=== PATIENT | female | born 1950 | race Caucasian/White ===

== ENCOUNTER → 2016-06-15 | Outpatient (CLI) | payer OTHER | LOC: BMCIMAGING 12:33 | PROVIDERS: ATTEND Physician Assistant | DX: S72.301A Unspecified fracture of shaft of right femur, initial encounter for closed fracture (principal) ==

== ENCOUNTER → 2016-07-13 | Outpatient (CLI) | payer OTHER | LOC: BMCIMAGING 12:59 | PROVIDERS: ATTEND Physician Assistant | DX: S72.001D Fracture of unspecified part of neck of right femur, subsequent encounter for closed fracture with routine healing (principal) ==

== ENCOUNTER → 2016-09-07 | Outpatient (CLI) | payer OTHER, MEDICARE | LOC: BMCIMAGING 13:09 | PROVIDERS: ATTEND Physician Assistant | DX: S72.001D Fracture of unspecified part of neck of right femur, subsequent encounter for closed fracture with routine healing (principal) ==

== ENCOUNTER → 2016-10-26 | Outpatient (CLI) | payer OTHER, MEDICARE | LOC: BMCIMAGING 10:04 | PROVIDERS: ATTEND Physician Assistant | DX: S72.001D Fracture of unspecified part of neck of right femur, subsequent encounter for closed fracture with routine healing (principal) ==

== ENCOUNTER → 2016-11-08 | Outpatient (CLI) | payer OTHER, MEDICARE | LOC: FIMAGING 14:15 | PROVIDERS: ATTEND Physician Assistant | DX: S72.141D Displaced intertrochanteric fracture of right femur, subsequent encounter for closed fracture with routine healing (principal) ==

== ENCOUNTER 2016-12-17 09:56 | Inpatient (IN) | payer OTHER, MEDICARE ==
--- NOTE | 2016-12-17 06:18 | PDHPUP ---
History & Physical Update H&P update statement: This history and physical update is based on an assessment of the patient which was completed after admission or registration (within 24 hours), but prior to the surgery/procedure.
--- NOTE | 2016-12-17 06:19 | PDIAF ---
- Diagnosis Diagnosis: right greater trochanteric fracture Code Status: Full Code - Medication Management Discharge Medications: Medications to Continue on Transfer Herbals/Supplements -Info Only 1 ea PO DAILY 11/29/16 [Last Taken Unknown] Multivitamins [Multivitamin (*)] 1 each PO DAILY 11/29/16 [Last Taken Unknown] Discharge Medications: Refer to the Discharge Home Medication list for PRN reason. - Orders Services needed: Home Care, Physical Therapy Home Care Face to Face: I certify that this patient was under my care and that I had the required rsoo-vh-owse encounter meeting the encounter requirements on the discharge day. My findings support the fact that the patient is homebound as defined in Home Care Face to Face Continued: CMS Chapter 7 Medicare Benefits Manual 30.1.1 , The condition of the patient is such that there exists a normal inability to leave home and consequently, leaving home would require a considerable and taxing effort. Activity/Weight Bearing Restrictions: tdwb right lower extremity. posterior hip precautions. no internal rotation. no hip flexion >90 deg. daily dressing changes. no soaking or immersion. aspirin 325 mg po daily. f/u at two weeks. seek attn for increasing pain, cp , sob, leg pain, drainage, other focal complaints - Follow Up Care Current Providers and Referrals: Lucila Puentes MD [Primary Care Provider] -
[2016-12-17] MEDS ORDERED: ceFAZolin 2 GM/SWFI 2 GM/20 ML SYR IVP ONE (10:24)
[2016-12-17] MEDS ORDERED: LR 1,000 ML IV SCH ×2 (10:24→14:30)
[2016-12-17] MEDS ORDERED: ACETAMINOPHEN 500 MG TAB PO ONE (10:24)
[2016-12-17] MEDS ORDERED: LR 1,000 ML IV ONE (10:28)
[2016-12-17] MEDS ORDERED: LIDOCAINE 1% 2 ML INJ ID PRN (10:28)
[2016-12-17] MEDS ORDERED: BACITRACIN 50,000 UNITS/10 ML SYR IRR ONE ×2 (10:30→12:09)
[2016-12-17] MEDS ORDERED: POLYMYXIN B SULFATE 500,000 UNIT/10 ML SYR IRR ONE ×2 (10:30→12:09)
[2016-12-17] MEDS ORDERED: ROPI/epINEPH/KETOROLAC/morphINE IU ONE (11:30)
[2016-12-17] MEDS ORDERED: BUPIVACAINE 0.5% 30 ML SDV ONE (12:09)
[2016-12-17] MEDS ORDERED: PROPOFOL 200 MG/20 ML VIAL ONE (12:33)
[2016-12-17] MEDS ORDERED: LIDOCAINE 2% 5 ML SDV ONE (12:33)
[2016-12-17] MEDS ORDERED: fentaNYL 100 MCG/2 ML INJ ONE ×3 (12:33→14:40)
[2016-12-17] MEDS ORDERED: MIDAZOLAM 2 MG/2 ML VIAL ONE (12:34)
[2016-12-17] MEDS ORDERED: DEXAMETHASONE 4 MG/ML VIAL ONE (12:56)
[2016-12-17] MEDS ORDERED: SUGAMMADEX SODIUM 200 MG/2 ML VIAL IVP ONE (12:56)
[2016-12-17] MEDS ORDERED: ROCURONIUM 50 MG/5 ML VIAL ONE (12:57)
[2016-12-17] MEDS ORDERED: MIDAZOLAM 2 MG/2 ML VIAL IVP ONE (12:59)
--- NOTE | 2016-12-17 12:59 | PDANEPAE ---
ANE History of Present Illness p/f right greater trochanter ORIF ANE Past Medical History - Cardiovascular History Hx Hypertension: No Hx Arrhythmias: No Hx Chest Pain: No Hx Coronary Artery / Peripheral Vascular Disease: No Hx CHF / Valvular Disease: No Hx Palpitations: No - Pulmonary History Hx COPD: No Hx Asthma/Reactive Airway Disease: No Hx Recent Upper Respiratory Infection: No Hx Oxygen in Use at Home: No Hx Sleep Apnea: No Sleep Apnea Screening Result - Last Documented: Negative - Neurologic History Hx Cerebrovascular Accident: No Hx Seizures: No Hx Dementia: No - Endocrine History Hx Diabetes: No - Renal History Hx Renal Disorders: No Renal History Comment: CHILDHOOD NEPHRITIS - Liver History Hx Hepatic Disorders: No Hepatic History Comment: HEP A & B IN CHILDHOOD - Neurological & Psychiatric Hx Hx Neurological and Psychiatric Disorders: No - Cancer History Hx Cancer: No - Congenital Disorder History Hx Congenital Disorders: No - GI History Hx Gastrointestinal Disorders: No - Other Health History Other Health History: NEG - Chronic Pain History Chronic Pain: Yes (04/2016 FX FEMUR & HANDS) - Surgical History Prior Surgeries: FX FEMUR REPAIR 04/2016. LAMINECTOMY X2. JONAH SHOULDERS. HEMORRHOIDS & FISSURES ANE Review of Systems Review of systems is: negative Review of Systems: - Exercise capacity METS (RN): 4 METS ANE Patient History - Allergies Allergies/Adverse Reactions: No Known Allergies Allergy (Verified 07/28/14 10:48) - Home Medications Home medications: home medication list seen and reviewed Home Medications: Herbals/Supplements -Info Only 1 ea PO DAILY 11/29/16 [Last Taken 12/10/16] Multivitamins [Multivitamin (*)] 1 each PO DAILY 11/29/16 [Last Taken 12/10/16] - NPO status NPO Since - Liquids (Date): 12/16/16 NPO Since - Liquids (Time): 22:00 NPO Since - Solids (Date): 12/16/16 NPO Since - Solids (Time): 20:30 - Anes Hx Anes Hx: no prior problems - Smoking Hx Smoking Status: Light smoker - Family Anes Hx Family Hx Anesthesia Complications: NEG ANE Labs/Vital Signs - Vital Signs Blood Pressure: 104/69 Heart Rate: 63 Respiratory Rate: 20 O2 Sat (%): 98 Height: 166.37 cm Weight: 54.431 kg ANE Physical Exam - Airway Neck exam: FROM Mallampati Score: Class 1 Mouth exam: normal dental/mouth exam - Pulmonary Pulmonary: no respiratory distress - Cardiovascular Cardiovascular: regular rate and rhythym - ASA Status ASA Status: II ANE Anesthesia Plan Anesthesia Plan: general endotracheal anesthesia Urgent/Emergent Case: Minna pierre completed preop but documented later for safe timely pt care
[2016-12-17] MEDS ORDERED: epHEDrine SULFATE 10 MG/ML SYR ONE (13:19)
[2016-12-17] MEDS ORDERED: HYDROmorphONE/DILAUDID 2 MG/ML INJ ONE (13:33)
[2016-12-17] MEDS ORDERED: LR 500 ML IV PRN (14:01)
[2016-12-17] MEDS ORDERED: HYDROmorphONE/DILAUDID 1 MG/ML INJ IVP PRN (14:01)
[2016-12-17] MEDS ORDERED: OXYCODONE/APAP 5/325 TAB PO PRN (14:01)
[2016-12-17] MEDS ORDERED: NALOXONE HCL 0.4 MG/ML INJ IVP PRN (14:01)
[2016-12-17] MEDS ORDERED: ONDANSETRON 4 MG/2 ML VIAL IVP PRN ×2 (14:01→14:24)
[2016-12-17] MEDS ORDERED: ACETAMINOPHEN 500 MG TAB PO PRN (14:01)
[2016-12-17] MEDS ORDERED: PROMETHAZINE HCL 25 MG/ML INJ IVP PRN ×2 (14:01→14:24)
[2016-12-17] MEDS ORDERED: ALBUTEROL 3 ML DEYVIAL IH PRN (14:01)
[2016-12-17] MEDS ORDERED: BISACODYL 10 MG SUPP PR PRN (14:24)
[2016-12-17] MEDS ORDERED: POLYETHYLENE GLYCOL 3350 17 GM PKT PO PRN (14:24)
[2016-12-17] MEDS ORDERED: METOCLOPRAMIDE 10 MG/2 ML VIAL IVP PRN (14:24)
[2016-12-17] MEDS ORDERED: LACTULOSE 20 GM/30 ML UDCUP PO PRN (14:24)
[2016-12-17] MEDS ORDERED: MAGNESIUM HYDROXIDE 30 ML UDCUP PO PRN (14:24)
[2016-12-17] MEDS ORDERED: ONDANSETRON DISINTEGRATING 4 MG TAB PO PRN (14:24)
[2016-12-17] MEDS ORDERED: DIPHENOXYLATE/ATROPINE LOMOTIL 1 TAB PO PRN (14:24)
[2016-12-17] MEDS ORDERED: PROMETHAZINE HCL 25 MG SUPPR PR PRN (14:24)
[2016-12-17] MEDS ORDERED: TEMAZEPAM 15 MG CAP PO PRN (14:24)
[2016-12-17] MEDS ORDERED: diphenhydrAMINE 25 MG CAP PO PRN (14:24)
[2016-12-17] MEDS ORDERED: DIAZEPAM 5 MG TAB PO PRN (14:24)
[2016-12-17] MEDS: fentaNYL 100 MCG/2 ML INJ IVP PRN ×4 (14:41→15:22)
[2016-12-17] MEDS: oxyCODONE IR 5 MG TAB PO PRN ×3 (16:13→21:18)
[2016-12-17] MEDS: TRANEXAMIC ACID 650 MG TAB PO SCH ×2 (17:31→21:18)
[2016-12-17] MEDS: ACETAMINOPHEN 325 MG TAB PO SCH ×2 (18:05→23:25)
[2016-12-17] MEDS: SENNOSIDES/DOCUSATE SODIUM TAB PO SCH (20:09)
[2016-12-17] MEDS: FAMOTIDINE 20 MG TAB PO SCH (20:09)
[2016-12-17] MEDS: ASPIRIN 325 MG TAB PO SCH (21:18)
[2016-12-17] MEDS: ceFAZolin 2 GM/DEXTROSE 100 ML IV SCH (21:18)
[2016-12-17 23:20] VITALS: PULSE 61; RESP 16
[2016-12-18] MEDS: ceFAZolin 2 GM/DEXTROSE 100 ML IV SCH (05:23)
[2016-12-18] MEDS: ACETAMINOPHEN 325 MG TAB PO SCH (05:23)
[2016-12-18] MEDS: oxyCODONE IR 5 MG TAB PO PRN ×2 (05:23→09:36)
[2016-12-18] MEDS: TRANEXAMIC ACID 650 MG TAB PO SCH (05:23)
[2016-12-18 05:24] LABS: HEMATOCRIT 32.9 % (38.0-47.0); HEMOGLOBIN 11.7 g/dL (12.6-16.3)
--- NOTE | 2016-12-18 07:54 | PDIAF ---
- Diagnosis Diagnosis: right greater trochanteric fracture Code Status: Full Code - Medication Management Discharge Medications: Medications to Continue on Transfer Herbals/Supplements -Info Only 1 ea PO DAILY 11/29/16 [Last Taken 12/10/16] Multivitamins [Multivitamin (*)] 1 each PO DAILY 11/29/16 [Last Taken 12/10/16] Aspirin [Aspirin 325 mg (*)] 325 mg PO DAILY tab 12/18/16 [Last Taken Unknown] Diazepam [Valium 5 MG (*)] 5 mg PO Q6HRS PRN #30 tab 12/18/16 [Last Taken Unknown] oxyCODONE IR [Oxycodone Ir (*)] 5 - 10 mg PO Q3HRS PRN #70 tab 12/18/16 [Last Taken Unknown] Discharge Medications: Refer to the Discharge Home Medication list for PRN reason. - Orders Services needed: Home Care, Physical Therapy Home Care Face to Face: I certify that this patient was under my care and that I had the required yihj-us-uuor encounter meeting the encounter requirements on the discharge day. My findings support the fact that the patient is homebound as defined in Home Care Face to Face Continued: CMS Chapter 7 Medicare Benefits Manual 30.1.1 , The condition of the patient is such that there exists a normal inability to leave home and consequently, leaving home would require a considerable and taxing effort. Diet Recommendation: no restrictions on diet Diet Texture: Regular Texture Diet Activity/Weight Bearing Restrictions: tdwb right lower extremity. posterior hip precautions. no internal rotation. no hip flexion >90 deg. daily dressing changes. no soaking or immersion. aspirin 325 mg po daily. f/u at two weeks. seek attn for increasing pain, cp , sob, leg pain, drainage, other focal complaints - Follow Up Care Current Providers and Referrals: Lucila Puentes MD [Primary Care Provider] -
[2016-12-18 08:08] VITALS: BP 95/57; TEMP 98.2; O2SAT 94
[2016-12-18] MEDS: ASPIRIN 325 MG TAB PO SCH (08:09)
[2016-12-18] MEDS: FAMOTIDINE 20 MG TAB PO SCH (08:10)
[2016-12-18] MEDS: SENNOSIDES/DOCUSATE SODIUM TAB PO SCH (08:10)
--- NOTE | 2016-12-18 08:12 | GDS ---
[f rep st] DISCHARGE SUMMARY ADMIT DIAGNOSIS: Right hip greater trochanteric fracture. POSTOP DIAGNOSIS: Right hip greater trochanteric fracture. PROCEDURE: Open reduction, internal fixation, right greater trochanteric fracture. HISTORY OF PRESENT ILLNESS: The patient is a 66-year-old woman who has a displaced greater trochante viry fracture following a [facility] placement and fracture previously. She has interference with her activi ties of daily living, persistent pain and loss of function. I have recommended surgical stabilizatio n given the displaced greater trochanteric fracture. She understood the risks, benefits, alternative s, and wished to proceed. Written consent was signed and placed in patient's chart. HOSPITAL COURSE: The patient was admitted to the hospital floor after uncomplicated ORIF of a greate r trochanteric fracture. She had no subsequent complications. At the time of discharge, she is tole rating an oral diet. Pain is well controlled on oral medicines. She is voiding without difficulty. Incision is clean, dry, and intact. DISCHARGE ACTIVITY: She is nonweightbearing to her right lower extremity for a total 6 weeks. Range of motion as tolerated. Daily dressing changes. She may shower without a bandage. No soaking or i mmersion. DISCHARGE MEDICATIONS: Oxycodone 5 mg 1-2 every 4 hours p.r.n. pain, Valium 5 mg 1 p.o. q.8 hours p. r.n. spasm, and aspirin 325 mg p.o. daily. FOLLOWUP: 2 weeks in the Orthopedic [facility]. Seek attention for increasing redness, swelling, draina ge, discharge, or other focal complaint. /[id number]/MODL
--- NOTE | 2016-12-18 10:56 | ASMTCMCOM ---
CM Note CM Note Notes: Patient is POD #1 displaced trochanter fracture repair with Dr Whyte. She would home PT - [facility] notified and accepts. Address/phone confirmed. She declines OT and says that she has DME at home. Her will transport her. Date Signed: 12/18/2016 10:56 AM Electronically Signed By:Trini Barbosa RN
--- NOTE | 2016-12-18 14:23 | ASDISCHSUM ---
Discharge Information Plan Status:Home with Home Health Medically Cleared to Leave: Discharge Date:12/18/2016 01:29 PM CM D/C Disposition:Home Health Service ADT D/C Disposition:Home Health Service Projected Discharge Date:12/18/2016 01:29 PM Transportation at D/C:Family Discharge Delay Reason: Follow-Up Date:12/18/2016 01:29 PM Discharge Slot: Final Diagnosis: Placement Information Patient Contact Information Contact Name:JAVON Relationship: Address:[address] City:[place] Alternate Phone: [facility]/Zip Code:[place] [address] Email: Financial Information Financial Class: Primary Plan Desc:MEDICARE INPATIENT Primary Plan Number:[id number] Secondary Plan Desc:[employer]/MDR SUPPLEMENT Secondary Plan Number:[id number] Assessment Information BC CM Progress Note CM Note CM Note Notes: Patient is POD #1 displaced trochanter fracture repair with Dr Whyte. She would home PT - [facility] notified and accepts. Address/phone confirmed. She declines OT and says that she has DME at home. Her will transport her. Date Signed: 12/18/2016 10:56 AM Electronically Signed By:Trini Barbosa RN Intervention Information
--- NOTE | 2016-12-22 10:12 | GOP ---
[f rep st] OPERATIVE REPORT DATE OF OPERATION: 12/17/2016 SURGEON: Yaakov Whyte MD STAFF NUCLE[employer] OFFICER: Rah Siddiqui, MUSIC PROFESSOR, [facility], who was a medical necessity for the entirety of the case. PREOPERATIVE DIAGNOSIS: Right greater trochanteric fracture-displaced. POSTOPERATIVE DIAGNOSIS: Right greater trochanteric fracture-displaced. PROCEDURE PERFORMED: Open reduction, internal fixation, right greater trochanteric fracture. FINDINGS: SPECIMENS: None. INDICATIONS: The patient is a 66-year-old woman who has undergone previous open reduction, internal fixation of an intertrochanteric femur fracture elsewhere. She has developed a secondary displacemen t of a large fragment of her greater trochanter. She has failed all attempts at conservative managem ent. She has displacement of approximately 4 cm to her greater trochanteric fracture and resultant w eakness. I, therefore, recommended operative intervention. I have outlined the surgical procedure, risks, benefits, and alternatives. She wished to proceed. Appropriate consent was signed and placed in patient's chart. DESCRIPTION OF PROCEDURE: The patient was identified in the preanesthesia area, the right hip clearl y demarcated as the operative site with indelible marker. She was given 2 g of Ancef intravenously e n route to the operative suite. In the OR, general endotracheal anesthesia was administered. She wa s turned to the left lateral decubitus position. All bony prominences were well padded, including an axillary roll. Attention was turned to the right hip, which was sterilely prepped and draped in usu al fashion. Appropriate time-out procedure was carried out. A posterior approach was made to the hi p. This was carried sharply through the skin and subcutaneous tissue, directly to the fascia of the tensor fascia ronna. This was opened in the origin of its fibers, extending into the gluteus musculat ure. A self-retaining Charnley retractor was placed. This allowed excellent visualization of the va stus lateralis and the greater trochanter. The soft tissue was elevated over the direct lateral aspe ct of the greater trochanter, and the displaced bony fragment easily identified. This measured appro ximately 3 cm in diameter and was displaced 4 cm. The bony footprints were then cleared of any surro unding soft tissue. This was reduced with a pointed tenaculum. This was secured with a Rebecca claw plate for the greater trochanter, and 2 cerclage wires. One was placed inferior to the lesser troch anter and 1 around the greater trochanter. This was secured progressively under tension until full c ompression was achieved. The hip was taken through internal and external rotation without any moveme nt through the fracture site. The wound was then irrigated. The vastus lateralis was closed using # 1 Ethibond, subcutaneous tissue injected with a platelet-rich plasma solution, the tensor fascia ronna closed using #1 Ethibond, the gluteus musculature closed using 0 Vicryl. Subcutaneous tissue was in stilled with a platelet-rich plasma solution and the tissue closed in layers using 0 Vicryl, 0 Monocr yl Quill equivalent, and the skin was stapled. The margins were instilled with a total of 30 cc of t he joint cocktail as above. A sterile compressive dressing was applied. The patient was awakened, e xtubated, and taken to the recovery in good, stable condition. TOTAL TOURNIQUET TIME: None. COMPLICATIONS: None. IMPLANTS: As above. DISPOSITION: To the recovery room, then the floor. She will be touchdown weightbearing for 6 weeks. Range of motion as tolerated. /[id number]/MODL
== END 2016-12-18 13:29 | disposition home health service (06) | DRG 482 ==
LOC: F3N 09:56
PROVIDERS: ADMIT Orthopaedic Surgery; ATTEND Orthopaedic Surgery
PROC: 0QS604Z Reposition Right Upper Femur with Internal Fixation Device, Open Approach (ICD-10-PCS; principal; 2016-12-17 12:15)
DX: S72.111A Displaced fracture of greater trochanter of right femur, initial encounter for closed fracture (principal); W19.XXXA Unspecified fall, initial encounter
CPT/HCPCS: 97161-GP; 97165-GO; C1713; G8978-GP-CI; G8979-GP-CI; G8980-GP-CI; G8987-GO-CI; G8988-GO-CI; G8989-GO-CI; J0171; J0690; J1100; J1170; J1885; J2250; J2704; J2795; J3010

== ENCOUNTER → 2017-01-18 | Outpatient (CLI) | payer OTHER, MEDICARE | LOC: BMCIMAGING 10:04 | PROVIDERS: ATTEND Physician Assistant | DX: S72.141D Displaced intertrochanteric fracture of right femur, subsequent encounter for closed fracture with routine healing (principal) ==

== ENCOUNTER → 2017-02-18 | Outpatient (CLI) | payer OTHER, MEDICARE | LOC: BMCIMAGING 10:04 | PROVIDERS: ATTEND Physician Assistant | DX: Z09 Encounter for follow-up examination after completed treatment for conditions other than malignant neoplasm (principal) ==

== ENCOUNTER → 2017-05-29 | Outpatient (CLI) | payer OTHER, MEDICARE | LOC: BMCIMAGING 15:43 | PROVIDERS: ATTEND Orthopaedic Surgery | DX: Z09 Encounter for follow-up examination after completed treatment for conditions other than malignant neoplasm (principal); M25.551 Pain in right hip ==

== ENCOUNTER → 2017-12-23 | Outpatient (CLI) | payer OTHER, MEDICARE | LOC: BMCIMAGING 11:05 | PROVIDERS: ATTEND Emergency Medicine | DX: S89.91XA Unspecified injury of right lower leg, initial encounter (principal) ==

== ENCOUNTER 2018-02-11 16:08 | Emergency (ER) | payer OTHER, MEDICARE ==
--- NOTE | 2018-02-11 16:19 | EDPHY ---
H & P Stated Complaint: R wrist injury -on ground horse bucked up-fooshed Time Seen by Provider: 02/11/18 16:18 - Medical/Surgical History Hx Asthma: No Hx Chronic Respiratory Disease: No Hx Diabetes: No Hx Cardiac Disease: No Hx Renal Disease: No Hx Cirrhosis: No Hx Alcoholism: No Hx HIV/AIDS: No Hx Splenectomy or Spleen Trauma: No Other PMH: back surgeries. ortho surgeries - Social History Smoking Status: Light smoker Constitutional: Initial Vital Signs Temperature (C) 36.7 C 02/11/18 16:12 Heart Rate 75 02/11/18 16:12 Respiratory Rate 18 02/11/18 16:12 Blood Pressure 122/73 H 02/11/18 16:12 O2 Sat (%) 97 02/11/18 16:12 O2 Delivery Mode Room Air Allergies/Adverse Reactions: No Known Allergies Allergy (Verified 07/28/14 10:48) Home Medications: Medication Instructions Recorded NK [No Known Home Meds] 02/11/18 Medical Decision Making ED Course/Re-evaluation: CHIEF COMPLAINT: HISTORY OF PRESENT ILLNESS: must have 4 elements: Location, Quality, Severity , Duration, Timing, Context, Modifying Factors, Associated Signs and Symptoms REVIEW OF SYSTEMS: A comprehensive 10 system review of systems is otherwise negative aside from elements mentioned in the history of present illness and medical decision making. PHYSICAL EXAM: HR, BP, O2 Sat, RR. Temp noted General Appearance: Alert, well hydrated, appropriate, and non-toxic appearing. Head: Atraumatic without scalp tenderness or obvious injury Eyes: Pupils equal, round, reactive to light and accommodation, EOMI, no trauma , no injection. Ears: Clear bilaterally, no perforation, normal landmarks Nose: Atraumatic, no rhinorrhea, clear. Throat: There is no erythema or exudates, no lesions, normal tonsils, mucus membranes moist. Neck: Supple, 2+ carotid upstroke, nontender, no lymphadenopathy. Respiratory: No retractions, no distress, no wheezes, and no accessory muscle use. Lungs are clear to auscultation bilaterally. Cardiovascular: Regular rate and rhythm, no murmurs, rubs, or gallops. Bilateral carotid, radial, dorsalis pedis, and posterior tibial pulses intact. Good capillary refill all extremities. Gastrointestinal: Abdomen is soft, nontender, non-distended, no masses, no rebound, no guarding, no peritoneal signs. Musculoskeletal: Normal active ROM of all extremities, atraumatic. Neurological: Alert, appropriate, and interactive. The patient has normal DTRs and non-focal cranial nerves, motor, sensory, and cerebellar exam. Skin: No rashes, good turgor, no nodules on palpation. Past medical history: Past surgical history: Family history: Social history: DIAGNOSTICS/PROCEDURES/CRITICAL CARE TIME: DIFFERENTIAL DIAGNOSIS: MEDICAL DECISION MAKING: Departure - Departure Referrals: Lucila Puentes MD [Primary Care Provider] - As per Instructions
--- NOTE | 2018-02-11 16:31 | EDPHY ---
H & P Time Seen by Provider: 02/11/18 16:18 HPI/ROS: CHIEF COMPLAINT: right wrist injury HISTORY OF PRESENT ILLNESS: The patient is a 67-year-old female who presents emergency department with right wrist injury. The patient states she was tending to a horse when he read up and she fell back. The horse struck her right wrist causing the injury. She now has a deformity to her wrist and severe pain. No numbness or tingling.She did not strike her head or lose consciousness. No neck or back pain. She denies other injury in the fall. The patient states she last ate last evening. REVIEW OF SYSTEMS: 10 systems were reveiwed and are negative with the exception of the elements mentioned in the history of present illness. Past Medical/Surgical History: Negative Past surgical history: Multiple orthopedic surgeries. She recently had a femur repaired by Dr. Whyte. She has also had left hand surgery by Dr. Ho. Smoking Status: Light smoker Physical Exam: Vitals noted GENERAL: Well-appearing, in no acute distress, alert. HEENT: Eyes normal to inspection, normal pharynx, no signs of dehydration. NECK: Normal, supple. RESPIRATORY: Clear to auscultation bilaterally, no rales, rhonchi or wheezing. CVS: Regular rate and rhythm, no rubs, murmurs, or gallops. ABDOMEN: Soft, nontender, nondistended, no organomegaly. BACK: Normal to inspection, no CVA tenderness. SKIN: Normal color, no rash, warm, dry. No pallor. EXTREMITIES: Fork deformity to right wrist. Neurovascular intact distally.. NEURO/PSYCH: Alert and oriented, normal mood and affect, normal motor sensory exam. Constitutional: Initial Vital Signs Temperature (C) 36.7 C 02/11/18 16:12 Heart Rate 75 02/11/18 16:12 Respiratory Rate 18 02/11/18 16:12 Blood Pressure 122/73 H 02/11/18 16:12 O2 Sat (%) 97 02/11/18 16:12 O2 Delivery Mode Room Air Allergies/Adverse Reactions: No Known Allergies Allergy (Verified 07/28/14 10:48) Home Medications: Medication Instructions Recorded Ondansetron Odt [Zofran Odt 4 mg 4 mg PO Q4PRN PRN #7 tab 02/11/18 (*)] oxyCODONE/APAP 5/325 [Percocet 1 - 2 tab PO Q4PRN PRN #11 tab 02/11/18 5325 (*)] Medical Decision Making - Diagnostics Imaging Results: Imaging Impressions Wrist X-Ray 02/11/18 16:15 Impression: Acute Colles' fracture, as-detailed. Note: The bones appear demineralized, and when clinically feasible, a DEXA scan is suggested to better quantify bone mineral density. ED Course/Re-evaluation: In the emergency department I discussed possible etiologies with the patient. I answered all her questions. An x-ray was ordered Right wrist x-ray: Please refer the dictated report. Patient has a deformed and shorten the right distal wrist fracture A I discussed the results with the patient. I discussed the results with Dr. Alston from Orthopedic surgery. He plans reduced the patient's wrist in the emergency department with the age of conscious sedation. I discussed sedation options with the patient. She consents to conscious sedation. She denies allergy to sedation medication. She has no allergy eggs. She last ate last night. She consents to the procedure. Patient was given fentanyl 100 mcg IV. Patient was given Zofran 4 mg IV. Procedure: Procedural sedation. Indication: fracture reduction. A pre-sedation evaluation was completed on the patient at 1635. Patient is an appropriate candidate for procedural sedation. The risks, benefits, alternatives of sedation were discussed with the patient and consent obtained. A time out was observed. The patient was sedated with propofol. The patient was monitored with continuous pulse oximetry, school lunch monitor, and end tidal CO2. There were no complications and no significant hypoxemia. I remained at the bedside for the sedation. The total time I spent in the procedural sedation was 15 minutes. Differential Diagnosis: My differential includes but is not limited to wrist fracture, wrist dislocation , contusion, sprain, neurovascular injury - Data Points Medications Given: Discontinued Medications Fentanyl (Sublimaze) 100 mcg IVP EDNOW ONE Stop: 02/11/18 16:41 Last Admin: 02/11/18 16:45 Dose: 100 mcg Sodium Chloride (Ns) 1,000 mls @ 0 mls/hr IV EDNOW ONE; Wide Open PRN Reason: Protocol Stop: 02/11/18 16:48 Last Admin: 02/11/18 16:48 Dose: 1,000 mls Ondansetron HCl (Zofran) 4 mg IVP EDNOW ONE Stop: 02/11/18 16:41 Last Admin: 02/11/18 16:45 Dose: 4 mg Departure - Departure Disposition: Home, Routine, Self-Care Clinical Impression: Wrist fracture Qualifiers: Encounter type: initial encounter Fracture type: closed Laterality: right Qualified Code(s): S62.101A - Fracture of unspecified carpal bone, right wrist, initial encounter for closed fracture Condition: Good Instructions: Wrist Fracture in Adults (ED) Additional Instructions: Keep your splint in place. Wear your sling. Use ice, elevation. Return with increasing pain, numbness or any other concerns. Call Dr. Alston's office tomorrow morning to make an appointment for next Saturday. Referrals: Luis Alston MD [Medical Doctor] - 5-7 days, call for appt. Prescriptions: Ondansetron Odt [Zofran Odt 4 mg (*)] 4 mg PO Q4PRN PRN #7 tab PRN Reason: For Nausea & Vomiting oxyCODONE/APAP 5/325 [Percocet 5/325 (*)] 1 - 2 tab PO Q4PRN PRN #11 tab PRN Reason: For Moderate To Severe Pain
[2018-02-11] MEDS ORDERED: fentaNYL 100 MCG/2 ML INJ IVP ONE (16:40)
[2018-02-11] MEDS ORDERED: ONDANSETRON 4 MG/2 ML VIAL IVP ONE (16:40)
[2018-02-11] MEDS ORDERED: NS 1,000 ML IV ONE (16:47)
[2018-02-11] MEDS ORDERED: PROPOFOL 200 MG/20 ML VIAL ONE (16:57)
[2018-02-11] MEDS ORDERED: PROPOFOL 200 MG/20 ML VIAL IVP ONE (17:00)
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
[2018-02-11 17:55] VITALS: BP 120/70
== END 2018-02-11 17:55 | disposition home or self-care (01) ==
PROC: 0PSHXZZ Reposition Right Radius, External Approach (ICD-10-PCS; principal; 2018-02-11)
DX: S52.531A Colles' fracture of right radius, initial encounter for closed fracture (principal); E86.9 Volume depletion, unspecified; W55.12XA Struck by horse, initial encounter; Y93.K9 Activity, other involving animal care; Y92.9 Unspecified place or not applicable; Y99.9 Unspecified external cause status
CPT/HCPCS: 25605; 73100; 73110; 96361; 96374; 96375; 99284; J2405; J2704; J3010

== ENCOUNTER → 2018-02-17 | Outpatient (CLI) | payer OTHER, MEDICARE | LOC: FIMAGING 15:12 | DX: S52.501D Unspecified fracture of the lower end of right radius, subsequent encounter for closed fracture with routine healing (principal) ==